=== PATIENT | female | born 1945 | race African-American/Black ===

== ENCOUNTER 2024-09-20 21:40 | Emergency (ER) | payer MEDICARE, SELFPAY ==
--- NOTE | ~2024-09-20 | CT_ITS ---
EXAMINATION: CT pelvis w con DATE: 09/21/2024 00:58 INDICATION: Sacral ulcer. TECHNIQUE: Computed tomography (CT) of the pelvis was performed with 100 mL Omnipaque 350 intravenous contrast. Automated exposure control and iterative reconstruction technique were employed. The dose- length product was 207.26 mGy-cm. COMPARISON: None FINDINGS: Stool distends the rectum. There are no pathologically enlarged lymph nodes. There is no fr ee intraperitoneal fluid. There is a sacral decubitus ulcer containing gas. No drainable fluid compon ent. No evidence of osteomyelitis. There is mild lumbar spondylosis. IMPRESSION: 1. Sacral decubitus ulcer. No evidence of osteomyelitis. Reviewed, dictated and finalized at location A.
[2024-09-20 21:44] VITALS: BP 132/76; PULSE 115; RESP 14; TEMP 36.6; O2SAT 100
--- NOTE | 2024-09-20 23:26 | ED.SKABFB ---
HPI - Skin/Abscess/Foreign Bdy General Chief complaint: Skin/Abscess/Foreign Body Stated complaint: Wound on buttocks-pressure sore Time Seen by Provider: 09/20/24 23:07 Source: patient Mode of arrival: ambulatory Limitations: dementia History of Present Illness HPI narrative: This is a 79-year-old female with PMH of dementia who presents with her daughter and friend and for complaint of possible sacral ulcer. Patient's daughter states that the patient was recently admitted for 2 weeks and rehab in [place] due to increasing dementia and decreased mobility. She thinks that she was not getting rotated enough and developed a sacral ulcer while in the facility. Daughter reports that they are actually traveling from [place] and she is trying to take the patient back to her home in [place]. She is concerned that the ulcer may be developing infection. Denies any known fevers, nausea, vomiting or altered mental status. Related Data Allergies Allergy/AdvReac Type Severity Reaction Status Date / Time No Known Allergies Allergy Verified 09/20/24 21:42 Review of Systems Review of Systems: All systems as dictated in HPI Exam Narrative: GENERAL: Well-appearing, well-nourished, and in no acute distress. HEAD: Normocephalic, atraumatic. EYES: PERRLA and EOMI. ENT: Nares clear, no rhinorrhea or epistaxis. Mucous membranes moist. Oropharynx without tonsillar hypertrophy exudate or other lesions. NECK: Supple. No adenopathy or masses. CHEST: No respiratory distress. Clear to auscultation. No wheezes rales or rhonchi HEART: Regular rate and rhythm. No murmur heard. Normal peripheral pulses. ABDOMEN: Soft, nontender, nondistended, normal active bowel sounds. MSK: Normal range of motion. No edema. SKIN: There is a stage III sacral ulcer, approximately 3 cm in diameter, with malodor and scant purulent discharge. No surrounding erythema or tenderness. NEURO: Alert and oriented x1, baseline. No focal deficits. PSYCH: Normal mood and affect. Course Vital Signs Vital signs: Vital Signs Temperature 97.8 F 09/20/24 21:44 Pulse Rate 115 H 09/20/24 21:44 Respiratory Rate 14 09/20/24 21:44 Blood Pressure 132/76 09/20/24 21:44 Pulse Oximetry 100 09/20/24 21:44 Oxygen Delivery Room Air 09/20/24 21:44 Temperature 97.8 F 09/20/24 21:44 Pulse Rate 115 H 09/20/24 21:44 Respiratory Rate 14 09/20/24 21:44 Blood Pressure 132/76 09/20/24 21:44 Pulse Oximetry 100 09/20/24 21:44 Oxygen Delivery Room Air 09/20/24 21:44 MDM - Skin/Abscess/Foreign Bdy MDM Narrative Medical decision making narrative: This is a 79-year-old female who presents with family member and friend for complaint of sacral ulcer. Vitals on arrival show a mildly elevated heart rate at 115 but otherwise normal. No fever. Exam does show sacral ulcer with some purulent material in the wound bed. It appears to be a stage III ulcer. Lab work does show elevated white count of 13.2. Initially meeting SIRS criteria with the high white count and heart rate, however CRP and lactic acid are normal. She does. Dehydrated which is more likely the cause of the tachycardia. CMP shows sodium of 148 potassium 3.2. She is given 2 L of fluid here and heart rate improved. Urinalysis shows high specific gravity to support the dehydration. Patient was given Zosyn here for potential sacral ulcer infection. CT pelvis with IV contrast (stat Rad read): Sacral decubitus ulcer with small locules of air. No drainable fluid component. There is questionable extension to the sacral bone. No CT evidence of osteomyelitis. Need for MRI should be determined clinically. Patient is resting comfortably on re-evaluation. She continues to be pain-free. I discussed the options regarding disposition with patient's family member who is the daughter. She advises that they are trying to get her down to [place] with family where they live. Since she does not appear overtly septic I do feel that it would be reasonable to discharge with wound care instructions and dressing as well as antibiotics for possible infection. I advised that it would be very important to follow-up closely with PCP and wound care when they get to [place]. Daughter is understanding of this and will ensure close follow-up. Patient will be discharged in stable condition. Supportive measures discussed and return precautions given. Patient is understanding and agreeable with plan for discharge with PCP follow-up. Lab Data 09/20/24 23:44 09/20/24 23:44 Labs: Lab Results 03/25/25 03/26/25 03/26/25 Range/Units 23:44 00:44 02:04 WBC 13.2 H (4.5-10.0) K/mm3 RBC 4.59 (4.2-5.4) M/mm3 Hgb 11.7 L (12.0-15.0) g/dL Hct 38.5 (37.0-47.0) % MCV 83.9 (80-100) fl MCH 25.5 L (26-34) pg MCHC 30.4 L (32-36) g/dl RDW 16.9 H (11.5-14.5) % Plt Count 328 (150-375) k/mm3 MPV 11.3 H (7.4-10.4) fl Immature Gran % (Auto) 2.4 H (0-0.5) % Neut % (Auto) 76.9 H (45.5-73.1) % Lymph % (Auto) 12.9 L (18.3-44.2) % [place] % (Auto) 6.8 (2.6-8.5) % Eos % (Auto) 0.7 (0-4.4) % Baso % (Auto) 0.3 (0.2-1.2) % Lymph # (Auto) 1.70 (0.9-3.2) K/mm3 [place] # (Auto) 0.9 H (0.1-0.6) K/mm3 Eos # (Auto) 0.1 (0-0.3) K/mm3 Baso # (Auto) 0.0 (0.0-0.1) K/mm3 Abs Immat Gran (auto) 0.31 H (0.00-0.031) K/mm3 Absolute Neuts (auto) 10.2 H (1.3-6.7) K/mm3 Absolute Nucleated RBC 0.000 (0.0-0.012) K/mm3 Nucleated RBC % 0.0 (0.0-0.2) % Sodium 148 H (137-145) mmol/L Potassium 3.2 L (3.4-5.0) mmol/L Chloride 110 H (98-107) mmol/L Carbon Dioxide 30 (22-30) mmol/L Anion Gap 8 (4-12) mmol/L BUN 22 H (7-17) mg/dL Creatinine 0.76 (0.7-1.0) mg/dL Estim Creat Clear Calc Not Reportable Estimated GFR > 60 (59 - ) Glucose 114 H (65-110) mg/dL Lactic Acid 1.9 (0.7-2.0) mmol/L Calcium 11.0 H (8.4-10.2) mg/dL Total Bilirubin 0.4 (0.2-1.3) mg/dL AST 45 H (14-36) U/L ALT 32 (6-35) U/L Alkaline Phosphatase 98 (38-126) U/L C-Reactive Protein 1.1 (<1.0) mg/dL Total Protein 8.0 (6.3-8.2) g/dL Albumin 3.7 (3.5-5.1) g/dL Urine Color Pending Urine Appearance Pending Urine pH Pending Ur Specific Burt Pending Urine Protein Pending Urine Glucose (UA) Pending Urine Ketones Pending Ur Blood (Man) Pending Urine Nitrate Pending Urine Bilirubin Pending Urine Urobilinogen Pending Leukocyte Esterase Rfl Pending Discharge Plan Discharge Clinical Impression: Sacral decubitus ulcer Patient Disposition: Home, Self-Care Condition: Stable Instructions: Antibiotic Form Additional Instructions: Exam today does show sacral ulcer. There is a potential developing infection to the area. We will treat with cephalexin and doxycycline. Please follow-up very closely with primary care and wound care in [place]. Make sure that she is staying well hydrated. If you have any new or worsening symptoms please return to the ER for further evaluation. Patient Language: Tunisian Prescriptions: New cephalexin 750 mg capsule 750 mg PO Q12H Qty: 14 0RF doxycycline hyclate 100 mg capsule 100 mg PO BID 7 Days Qty: 14 0RF Follow-up/Referrals: PHYSICIAN,JAVA DEVELOPER ARCHITECT [Non-Staff] - Time of Disposition: 02:27
[2024-09-21 00:05] LABS: Basophils Percent Auto 0.3 % (0.2-1.2); Eosinophils Absolute Auto 0.1 K/mm3 (0-0.3); Eosinophils Percent Auto 0.7 % (0-4.4); Hematocrit 38.5 % (37.0-47.0); Hemoglobin 11.7 g/dL (12.0-15.0); Immature Granulocyte Absolute 0.31 K/mm3 (0.00-0.031); Immature Granulocyte Percent A 2.4 % (0-0.5); Lymphocytes Percent Auto 12.9 % (18.3-44.2); Mean Corpuscular HGB Conc 30.4 g/dl (32-36); Mean Corpuscular Hemoglobin 25.5 pg (26-34); Mean Corpuscular Volume 83.9 fl (80-100); Mean Platelet Volume 11.3 fl (7.4-10.4); Monocytes Absolute Auto 0.9 K/mm3 (0.1-0.6); Monocytes Percent Auto 6.8 % (2.6-8.5); Neutrophils Absolute Auto 10.2 K/mm3 (1.3-6.7); Neutrophils Percent Auto 76.9 % (45.5-73.1); Platelet Count Result 328 k/mm3 (150-375); Red Blood Count 4.59 M/mm3 (4.2-5.4); Red Cell Distribution Width 16.9 % (11.5-14.5); White Blood Count 13.2 K/mm3 (4.5-10.0)
[2024-09-21 00:11] LABS: Alanine Aminotransferase 32 U/L (6-35); Albumin Level 3.7 g/dL (3.5-5.1); Alkaline Phosphatase 98 U/L (38-126); Anion Gap 8 mmol/L (4-12); Aspartate Amino Transferase 45 U/L (14-36); Bilirubin,Total 0.4 mg/dL (0.2-1.3); Blood Urea Nitrogen 22 mg/dL (7-17); CRP 1.1 mg/dL (<1.0); Carbon Dioxide 30 mmol/L (22-30); Chloride 110 mmol/L (98-107); Estimated Glomerular Filt Rate > 60; Glucose 114 mg/dL (65-110); Potassium 3.2 mmol/L (3.4-5.0); Sodium 148 mmol/L (137-145)
[2024-09-21] MEDS: SODIUM CHLORIDE 0.9% IV 1,000 ML 999 ML IV CONT ×2 (00:43→01:49)
[2024-09-21 01:13] LABS: Lactic Acid Reflex 1.9 mmol/L (0.7-2.0)
[2024-09-21 01:15] VITALS: BP 138/67; PULSE 101; RESP 14; O2SAT 100
[2024-09-21] MEDS: PIPERACILLN/TAZ 3.375GM/NS50ML 3.375 GM/50 ML BAG IVPB (01:50)
[2024-09-21 02:30] LABS: Add Urine Microscopic? YES; Appearance Urine Cloudy (Clear); Bacteria Urine None Seen /hpf; Bilirubin Urine Negative (Negative); Blood Urine Negative (Negative); Budding Yeast Urine Present /hpf; Color Urine Yellow (Yellow); Glucose Urine UA Negative (Negative); Hyaline Casts Urine Present /lpf; Ketones Urine Trace mg/dL (Negative); Leukocyte Esterase Ur Negative LEU/UL (Negative); Mucus Urine Present /lpf; Need Manual Microscopic Reviewed; Nitrate Urine Negative (Negative); Protein Urine 1+ mg/dL (Negative); RBC Urine 0-2 /hpf (0-2); Specific Grav Ur > 1.045 (1.001-1.035); Squamous Epithelial Cell Urine Occasional /hpf (Few); WBC Urine 0-5 /hpf (0-3)
[2024-09-21 02:48] VITALS: BP 129/77; PULSE 91; RESP 14; O2SAT 100
[2024-09-21 03:55] VITALS: BP 135/97; PULSE 91; RESP 14; O2SAT 99
[2024-09-21 06:30] VITALS: BP 134/64; PULSE 87; RESP 14; O2SAT 100
[2024-09-21 08:51] VITALS: BP 152/70; PULSE 99; RESP 20; O2SAT 98
== END 2024-09-21 12:22 | disposition home or self-care (01) ==
PROVIDERS: Emergency Provider Physician Assistant
DX: L89.153 Pressure ulcer of sacral region, stage 3 (principal); F03.90 Unspecified dementia, unspecified severity, without behavioral disturbance, psychotic disturbance, mood disturbance, and anxiety
CPT/HCPCS: 36415; 72193; 80053; 81001; 83605; 85025; 86140; 87040; 87070; 87075; 87077; 87147; 87181; 87186; 87205; 96365; 99284; J2543; J7030; Q9967